=== PATIENT | male | born 1955 | race Caucasian/White ===

== ENCOUNTER 2016-12-30 18:40 | Emergency (ER) | payer MEDICAID, OTHER ==
[~2016-12-30] VITALS: Ht 175.3 cm; Wt 72.7 kg
[2016-12-30 18:45] VITALS: Ht 175.3 cm; Wt 72.7 kg
[2016-12-30] MEDS ORDERED: ONDANSETRON (ODT) 4 MG TAB ODT STA (18:45)
[2016-12-30] MEDS ORDERED: HYDROCODONE/APAP (10/325) TAB PO ONE (19:00)
--- NOTE | 2016-12-30 19:23 | RADRPT ---
PROCEDURE: CT Brain without contrast. CLINICAL INDICATION: Trauma; Neurologic deficit TECHNIQUE: A CT of the brain was performed on multidetector high-resolution CT scanner utilizing a xial sections from the skull base through the vertex without contrast. One or more of the following dose reduction techniques were used: Automated exposure control, Adjustment of the mA and/or kV acc ording to patient size, and/or use of iterative reconstruction technique. DOSE: CTDI = 43/30 mGy and the DLP = 781 mGy-cm. COMPARISON: None available FINDINGS: Motion degradation. Left frontal temporal craniotomy changes with a chronic appearing 2 mm epidural fluid collection beneath the craniotomy flap. No definite acute intracranial hemorrhage, significant mass effect or midline shift. Patchy hypoattenuation of the cerebral white matter is age indetermin ate but may represent mild subacute to chronic microvascular ischemic changes. Atherosclerotic calci fications of the cavernous segments of the internal carotid arteries are seen. Prominence of the cor tical sulci and ventricles are related to moderate cerebral volume loss. No significant opacificati on of the visualized paranasal sinuses or mastoids. IMPRESSION: Left frontal-temporal craniotomy changes with a chronic appearing 2 mm epidural fluid collection [place] the craniotomy flap. No definite acute intracranial hemorrhage or significant mass effect. Mild subacute to chronic microvascular disease and intracranial atherosclerosis. Moderate volume loss. RPTAT: AA .David Klein MD, MD Date Time Electronically viewed and signed by .David Klein MD, on 12/30/2016 19:22 .T/
--- NOTE | 2016-12-30 20:01 | RADRPT ---
PROCEDURE: XR Wrist. CLINICAL INDICATION: Trauma, fall TECHNIQUE: 4 views of the left wrist were performed. COMPARISON: No prior studies are available for comparison. FINDINGS: There is deformity of the distal radius consistent with old fracture. There is a fracture of radial styloid of uncertain age as well. There is likely old fracture of the ulnar styloid. Mild osteoar throsis at radiocarpal joint. Approximate 5 mm positive ulnar variance. IMPRESSION: Deformity of the distal radius consistent with old fracture. There is a fracture of radial styloid of uncertain age as well. There is likely old fracture of the ulnar styloid. Mild osteoarthrosis a t radiocarpal joint. Approximate 5 mm of positive ulnar variance. RPTAT: HJES .Cleve Suresh MD, MD Date Time Electronically viewed and signed by .Cleve Suresh MD, on 12/30/2016 20:01 .S/
--- NOTE | 2016-12-30 20:08 | ERD ---
ER Documentation Chief Complaint Date/Time DATE: 12/30/16 TIME: 20:05 Chief Complaint Left lower arm pain and swelling r/t fall,BIBA [id number] from [facility] HPI Very nice gentleman who is 61 years old. History of remote brain injury. The patient states that he was trying to transfer from his bed and had a mechanical fall on outstretched hand. The patient now has left wrist pain. It appears he fell several days ago with a left frontal forehead hematoma but was not evaluated. He denies any headache or neck pain no prodrome of chest pain or shortness of breath. He does describe moderate throbbing pain to the left wrist that is worse with movement. ROS All systems reviewed and are negative except as per history of present illness. Allergies Allergies: Coded Allergies: No Known Allergy (Verified Allergy, Mild, 09/06/07) PMhx/Soc History of Surgery: Yes (head sx per patient verbatim) Anesthesia Reaction: No Hx Neurological Disorder: Yes (Alzhemier's) Hx Respiratory Disorders: No Hx Cardiac Disorders: Yes (hypercholesteolemia) Hx Psychiatric Problems: Yes (schizophrenia,bipolar 1,manic depressive) Hx Miscellaneous Medical Probl: No Hx Alcohol Use: Yes (rarely) Hx Substance Use: No Hx Tobacco Use: Yes (stopped years ago per patient verbatim) Smoking Status: Former smoker FmHx Family History: No diabetes Physical Exam Vitals Vital Signs Date Time Temp Pulse Resp B/P Pulse Ox O2 Delivery O2 Flow Rate FiO2 12/30/16 18:45 99.1 68 18 125/86 97 Physical Exam Airway is intact Bilateral breath sounds Strong distal pulses No obvious deficits General: Well developed, well nourished, no acute distress Head: Old hematoma overlying left orbit Eyes: Pupils equally reactive, EOM intact ENT: Moist mucous membranes Neck: Supple, no lymphadenopathy, No midline tenderness, deformities, step-offs to the cervical spine, full active and passive range of motion without midline pain. Respiratory: Lungs clear bilaterally, no distress, no chest wall tenderness, no crepitus Cardiovascular: RRR, no murmurs, rubs, or gallops Abdominal: Soft, non-tender, non-distended, no peritoneal signs, pelvis is stable : Deferred MSK: Mild swelling and deformity noted to the left wrist, 2+ radial ulnar pulses , 5 out of 5 hand grasp strength, no snuffbox tenderness. No midline tenderness deformities or step-offs to the thoracolumbar spine Neurologic: Alert and oriented, moving all extremities, normal speech, no focal weakness, no cerebellar signs, slight resting tremor Skin: No ecchymoses or bruising to the chest or abdomen Psych: Normal mood Results 24 hrs Current Medications Medications (Trade) Dose Ordered Sig/Chito Route PRN Reason Start Time Stop Time Status Last Admin Dose Admin Acetaminophen/ Hydrocodone Bitart ([place] (10325)) 1 tab ONCE ONCE PO 12/30/16 19:00 12/30/16 19:01 DC 12/30/16 19:51 Ondansetron HCl (Zofran Odt) 4 mg ONCE STAT ODT 12/30/16 18:45 12/30/16 18:48 DC 12/30/16 19:51 Procedures/MDM EKG, MONITORS, & DIAGNOSTIC IMAGING: X-ray left wrist: IMPRESSION: Deformity of the distal radius consistent with old fracture. There is a fracture of radial styloid of uncertain age as well. There is likely old fracture of the ulnar styloid. Mild osteoarthrosis at radiocarpal joint. Approximate 5 mm of positive ulnar variance. RPTAT: HJES CT brain: IMPRESSION: Left frontal-temporal craniotomy changes with a chronic appearing 2 mm epidural fluid collection beneath the craniotomy flap. No definite acute intracranial hemorrhage or significant mass effect. Mild subacute to chronic microvascular disease and intracranial atherosclerosis. Moderate volume loss. RPTAT: AA PROCEDURES: Splint Application Note: Splint type: Prefabricated Velcro volar splint Extremity: Left wrist Indication: Left wrist pain The patient was consented at bedside prior to splint application and states understanding of risks, benefits, and alternatives. The patient was neurovascularly intact prior to and status post application of the splint. The patient tolerated the procedure well and there were no complications. MEDICAL DECISION MAKING: Clear mechanical fall. No evidence of syncope. The patient has a left wrist deformity. He has an old hematoma to the left supraorbital region. This appears to be old and subacute. The patient does not meet high-risk criteria and based on NEXUS cervical spine criteria there is no indication for cervical spine imaging at this time. The patient has a deformity to his left wrist. No other bony abnormalities are noted. ER COURSE: X-ray imaging seems to be consistent with an old fracture however given pain and swelling, the patient will be placed in a splint. He was given pain medication. CT imaging shows no evidence of intracranial process. The patient is safe for discharge home. I kept the patient and/or family informed of laboratory and diagnostic imaging results throughout the emergency room course. DISPOSITION PLAN: We discussed follow up with the patient's primary care doctor within 24 to 48 hours as needed. We also discussed return to the emergency room for worsening symptoms or worsening condition. Discharge Medications: [place], Z[place]iran We discussed the use of narcotics including avoidance of operating heavy machinery and driving as well as its addictive properties. Departure Diagnosis: Primary Impression: Contusion of left wrist Encounter type: initial encounter Qualified Code: S60.212A - Contusion of left wrist, initial encounter Additional Impression: Fall with no injury Encounter type: initial encounter Qualified Code: W19.XXXA - Fall with no injury, initial encounter Condition: Stable PABLO MEZA MD Dec 30, 2016 20:08
[2016-12-30] MEDS ORDERED: HYDR-906 PO (20:19)
[2016-12-30] MEDS ORDERED: ONDA4TAB14 PO (20:19)
[2016-12-31 00:28] VITALS: BP 127/69; PULSE 67; RESP 16; TEMP 98.1
== END 2016-12-31 00:30 | disposition home or self-care (01) ==
LOC: E/R 18:40
DX: S60.212A Contusion of left wrist, initial encounter (principal); R40.2252 Coma scale, best verbal response, oriented, at arrival to emergency department; R40.2142 Coma scale, eyes open, spontaneous, at arrival to emergency department; R40.2362 Coma scale, best motor response, obeys commands, at arrival to emergency department; S00.83XA Contusion of other part of head, initial encounter; W18.39XA Other fall on same level, initial encounter; Y92.9 Unspecified place or not applicable; Z87.891 Personal history of nicotine dependence
CPT/HCPCS: 29125; 70450; 73110; Z7502; Z7610

== ENCOUNTER 2018-12-04 08:34 | Emergency (ER) | payer OTHER ==
[~2018-12-04] VITALS: Ht 167.6 cm; Wt 70.0 kg
[~2018-12-04 08:34] MED LIST: HYDR-4011 PO; ONDA4TAB14 PO
--- NOTE | 2018-12-04 08:46 | ERD ---
ER Documentation Chief Complaint Chief Complaint Chest Pain HPI 63-year-old male history of hypertension, hyperlipidemia, dementia and Parkinson's disease presents the ED via rescue ambulance for evaluation of chest pain. Patient reports being awakened from sleep at 10 PM last night with sharp and burning left-sided, nonradiating, moderate to severe chest pain with mild shortness of breath but no nausea, vomiting or diaphoresis. Pain waxed and waned but persisted throughout the night. Paramedics were called prehospital EKG showed no ischemic changes. Patient was given aspirin and nitroglycerin spray which decreased his pain from 8 to approximately 4. Currently pain is mostly resolved. Denies abdominal pain or back pain. No leg pain or swelling. No URI symptoms, cough or hemoptysis. No skin rash. No fevers or chills. ROS All systems reviewed and are negative except as per history of present illness. Medications Home Meds Discontinued Scripts Ondansetron (Ondansetron Odt) 4 Mg Tab.rapdis, 4 MG PO Q6H PRN for NAUSEA AND/OR VOMITING, #10 TAB Prov:PABLO MEZA MD 12/30/16 Hydrocodone/Acetaminophen ([place] 5-325 Tablet) 1 Each Tablet, 1 TAB PO Q6H PRN for PAIN, #7 TAB Prov:PABLO MEZA MD 12/30/16 Allergies Allergies: Coded Allergies: No Known Allergy (Verified , 12/04/18) PMhx/Soc History of Surgery: Yes (head sx per patient verbatim) Anesthesia Reaction: No Hx Neurological Disorder: Yes (Alzhemier's) Hx Respiratory Disorders: No Hx Cardiac Disorders: Yes (hypercholesteolemia) Hx Psychiatric Problems: Yes (schizophrenia,bipolar 1,manic depressive) Hx Miscellaneous Medical Probl: No Hx Alcohol Use: Yes (rarely) Hx Substance Use: No Hx Tobacco Use: Yes (stopped years ago per patient verbatim) FmHx No sudden cardiac or stroke Physical Exam Vitals Vital Signs Date Temp Pulse Resp B/P (MAP) Pulse Ox O2 O2 Flow FiO2 Time Delivery Rate 12/04/18 74 16 143/70 97 Nasal 1.0 13:30 (94) Cannula 12/04/18 99.2 61 17 128/79 98 Nasal 2.0 10:50 (95) Cannula 12/04/18 Nasal 2 09:35 Cannula 12/04/18 99.2 80 18 123/79 95 08:52 (94) Physical Exam Const: No acute distress Head: Atraumatic Eyes: Normal Conjunctiva ENT: Normal External Ears, Nose and Mouth. Neck: Full range of motion. No meningismus. Resp: Clear to auscultation bilaterally Cardio: Regular rate and rhythm, no murmurs Abd: Soft, non tender, non distended. Normal bowel sounds Skin: No petechiae or rashes Back: No midline or flank tenderness Ext: No cyanosis, or edema Neur: Awake and alert Psych: Normal Mood and Affect Result Diagram: 12/04/1890112/04/18901 Results 24 hrs Laboratory Tests Test 12/04/18 09:02 12/04/18 12:32 White Blood Count 6.2 10^3/ul Red Blood Count 4.65 10^6/ul Hemoglobin 13.4 g/dl Hematocrit 38.9 % Mean Corpuscular Volume 83.7 fl Mean Corpuscular Hemoglobin 28.8 pg Mean Corpuscular Hemoglobin Concent 34.4 g/dl Red Cell Distribution Width 12.4 % Platelet Count 218 10^3/UL Mean Platelet Volume 10.1 fl Immature Granulocytes % 0.300 % Neutrophils % 68.8 % Lymphocytes % 19.6 % Monocytes % 7.2 % Eosinophils % 3.9 % Basophils % 0.2 % Nucleated Red Blood Cells % 0.0 /100WBC Immature Granulocytes # 0.020 10^3/ul Neutrophils # 4.3 10^3/ul Lymphocytes # 1.2 10^3/ul Monocytes # 0.5 10^3/ul Eosinophils # 0.2 10^3/ul Basophils # 0.0 10^3/ul Nucleated Red Blood Cells # 0.0 10^3/ul Prothrombin Time 12.8 Sec Prothrombin Time Ratio 1.0 INR International Normalized Ratio 0.95 Activated Partial Thromboplast Time 25.9 Sec Sodium Level 137 mmol/L Potassium Level 3.8 mmol/L Chloride Level 100 mmol/L Carbon Dioxide Level 24 mmol/L Anion Gap 13 Blood Urea Nitrogen 10 mg/dl Creatinine 0.63 mg/dl Est Glomerular Filtrat Rate mL/min > 60 mL/min Glucose Level 316 mg/dl Calcium Level 9.0 mg/dl Total Bilirubin 0.2 mg/dl Direct Bilirubin 0.00 mg/dl Indirect Bilirubin 0.2 mg/dl Aspartate Amino Transf (AST/SGOT) 18 IU/L Alanine Aminotransferase (ALT/SGPT) 27 IU/L Alkaline Phosphatase 63 IU/L Troponin I < 0.012 ng/ml < 0.012 ng/ml Total Protein 6.9 g/dl Albumin 4.1 g/dl Globulin 2.80 g/dl Albumin/Globulin Ratio 1.46 Creatine Kinase 50 IU/L Creatinine Kinase MB (Mass) 0.44 ng/ml Current Medications Medications Dose Sig/Chito Start Time Status Last (Trade) Ordered Route PRN Stop Time Admin Dose Reason Admin Aspirin 162 mg ONCE STAT 12/04/18 DC 12/04/18 (Aspirin) PO 08:51 08:51 12/04/18 08:54 Lactated 1,000 ml @ Q1H STAT 12/04/18 DC 12/04/18 Ringer's 1,000 mls/hr IV 10:16 10:39 12/04/18 11:15 40 ml ONCE ONCE 12/04/18 DC 12/04/18 Miscellaneous PO 11:00 10:40 Medication 12/04/18 11:01 (Gi Cocktail (2)) 650 mg ONCE ONCE 12/04/18 DC 12/04/18 Acetaminophen PO 13:00 13:29 (Tylenol 12/04/18 13:01 Tab) Procedures/MDM DOCUMENTS REVIEWED: ED nurse, prior ED, boarding [facility] facility records EKG: Time: 903. Sinus rhythm. Ventricular rate 75. Normal [place] QRS. No acute ST segment elevation or depression. Normal axis. No ectopy. My Interpretation EKG: Time: 08 08. Sinus rhythm. Ventricular rate 70. Normal [place] and QRS. No acute ST segment elevation or depression. No axis deviation or ectopy. My Interpretation IMAGING: PROCEDURE: XR Chest. CLINICAL INDICATION: Chest pain. TECHNIQUE: AP Portable chest. COMPARISON: SD CR CHEST 08/20/2018; CR CHEST 12/27/2016; CR PORTABLE CHEST 09/25/2008 FINDINGS: The cardiomediastinal silhouette is normal.The aortic arch is calcified. No focal consolidation, pleural effusion or pneumothorax is seen. There is mild bibasilar scarring or atelectasis. Old right rib fractures are again seen. IMPRESSION: No radiographic evidence of acute cardiopulmonary disease. Mild bibasilar scarring or atelectasis. [facility] Physician Ginger Date Time Electronically viewed and signed by Carol Burroughs Physician on 12/04/2018 09:24 CS/ MEDICAL DECISION MAKIN-year-old male history of hypertension, hyperlipidemia, dementia and Parkinson's disease presents the ED via rescue ambulance for evaluation of chest pain. CBC significant for mild anemia but no leukocytosis or thrombocytopenia. Chemistry negative for electrolyte abnormalities but there is hyperglycemia without acidosis. Serial EKGs are negative for ischemia. No radiographic evidence of pneumonia, pneumothorax or congestive heart failure. The patient presents with chest pain and I considered pulmonary embolism, aortic dissection, pneumothorax among other diagnoses. Evaluation for acute coronary syndrome was performed. The HEART score was utilized for risk stratification and found to be = 3. Repeat EKG and troponin @ 3 hours were unchanged. Based on this evaluation the patients risk of major adverse cardiac events is <1%. Shared decision making occurred with patient and the decision has been made to discharge the patient for outpatient evaluation and functional study within 72 hours. Hyperglycemia without acidosis or HHS. Possible new onset diabetes mellitus will require urgent follow-up. Stable for discharge with urgent, mandatory outpatient follow-up as counseled. Observation Note: Time: 4 hours Family Hx: No sudden cardiac Evaluation: Multiple exams showed improving symptoms and no evidence of acute coronary syndrome. Stable for discharge with urgent outpatient follow-up as counseled. Counseled patient regarding diagnosis, diagnostic results and need for urgent, outpatient follow-up or return to the ED if symptoms worsen, continue or any other concerns. Departure Diagnosis: Primary Impression: Chest pain with low risk for cardiac etiology Additional Impressions: Parkinsons disease Dementia Dementia type: unspecified type Dementia behavioral disturbance: without behavioral disturbance Qualified Codes: F03.90 - Unspecified dementia without behavioral disturbance Hyperglycemia Condition: Stable MICHELA NUNEZ MD Dec 04, 2018 08:46
[2018-12-04] MEDS ORDERED: ASPIRIN 81 MG TAB PO STA (08:51)
[2018-12-04 08:52] VITALS: Ht 167.6 cm; Wt 70.0 kg
[2018-12-04] MEDS ORDERED: LACTATED RINGER'S 1,000 ML IV STA (10:16)
[2018-12-04] MEDS ORDERED: LIDOCAINE/MYLANTA 40 ML BTL PO ONE (11:00)
[2018-12-04] MEDS ORDERED: ACETAMINOPHEN 325 MG TAB PO ONE (13:00)
[2018-12-04 13:30] VITALS: BP 143/70; PULSE 74; RESP 16
== END 2018-12-04 15:35 | disposition short-term general hospital (02) ==
LOC: E/R 08:34
DX: G20 Parkinson's disease (principal); F03.90 Unspecified dementia, unspecified severity, without behavioral disturbance, psychotic disturbance, mood disturbance, and anxiety; R40.2142 Coma scale, eyes open, spontaneous, at arrival to emergency department; R40.2242 Coma scale, best verbal response, confused conversation, at arrival to emergency department; R40.2362 Coma scale, best motor response, obeys commands, at arrival to emergency department; I10 Essential (primary) hypertension; Z87.891 Personal history of nicotine dependence
CPT/HCPCS: 36415; 71045; 80053; 82550; 82553; 84484; 85025; 85610; 85730; 93005; J7120; Z7502; Z7610

== ENCOUNTER 2019-07-29 04:19 | Emergency (ER) | payer OTHER ==
[~2019-07-29] VITALS: Ht 175.3 cm; Wt 70.5 kg
[2019-07-29 04:28] VITALS: Ht 175.3 cm; Wt 70.5 kg
[2019-07-29] MEDS ORDERED: NITROGLYCERIN 2% 1 GM OINT PKT TD STA (04:30)
[2019-07-29] MEDS ORDERED: ASPIRIN 325 MG TAB PO STA (04:30)
[2019-07-29] MEDS ORDERED: ONDANSETRON 4 MG INJ IV STA (04:30)
[2019-07-29] MEDS ORDERED: morphine 4 MG/ML VIAL IV STA (04:30)
[2019-07-29] MEDS ORDERED: SOD CHLORIDE 0.9% 1,000 ML IV SCH (05:56)
[2019-07-29] MEDS ORDERED: ACETAMINOPHEN 325 MG TAB PO PRN (06:00)
[2019-07-29] MEDS ORDERED: ONDANSETRON 4 MG INJ IV PRN (06:00)
[2019-07-29 10:31] VITALS: BP 134/83; PULSE 63; RESP 18
== END 2019-07-29 10:33 | disposition home or self-care (01) ==
LOC: E/R 04:19
DX: R07.9 Chest pain, unspecified (principal); G30.9 Alzheimer's disease, unspecified; F17.210 Nicotine dependence, cigarettes, uncomplicated; R51 Headache
CPT/HCPCS: 36415; 70450; 71045; 80053; 83880; 84484; 85025; 85610; 85730; 93005; 96374; 96375; J2270; J2405; J7030; Z7502; Z7610